=== PATIENT | male | born 1995 | race Caucasian/White ===

== ENCOUNTER 2017-02-15 17:36 | Emergency (ER) | payer BC ==
[~2017-02-15] VITALS: Ht 182.9 cm; Wt 61.0 kg
--- OUTSIDE RECORDS SUMMARY | 2017-02-15 17:45 | XMS REPORT | Continuity of Care Document ---
Author Author [facility] Address Unknown Phone Unavailable Allergies Active Description Code Type Severity Reaction Onset Reported/Identified Relationship to Patient Clinical Status Yes NKDA N/A N/A Medications Problems Procedures Results Encounters ACCT No. Visit Date/Time Discharge Status Pt. Type Provider Facility Loc./Unit Complaint [id number] 12/20/2016 09:48:00 12/20/2016 09:48:00 DIS Outpatient [id number] 12/20/2016 09:47:47 12/20/2016 09:47:47 DIS Outpatient [id number] 12/20/2016 09:38:59 12/20/2016 09:38:59 DIS Outpatient [id number] 10/06/2016 15:38:44 10/06/2016 15:38:44 DIS Outpatient [id number] 09/26/2016 09:06:42 09/26/2016 09:06:42 DIS Outpatient [id number] 09/26/2016 09:05:32 09/26/2016 09:05:32 DIS Outpatient [id number] 09/26/2016 07:56:02 09/26/2016 07:56:02 DIS Outpatient [id number] 09/26/2016 07:55:04 09/26/2016 07:55:04 DIS Outpatient [id number] 09/23/2016 14:53:58 09/23/2016 14:53:58 DIS Outpatient [id number] 09/23/2016 10:32:06 09/23/2016 10:32:08 DIS Outpatient [id number] 09/14/2016 09:51:28 09/14/2016 09:51:28 DIS Outpatient [id number] 09/13/2016 09:50:59 09/13/2016 09:50:59 DIS Outpatient [id number] 09/13/2016 08:34:23 09/13/2016 08:34:23 DIS Outpatient [id number] 09/13/2016 08:23:10 09/13/2016 08:23:10 DIS Outpatient [id number] 09/13/2016 08:22:56 09/13/2016 08:22:56 DIS Outpatient [id number] 09/13/2016 08:22:05 09/13/2016 08:22:05 DIS Outpatient [id number] 09/13/2016 08:21:51 09/13/2016 08:21:51 DIS Outpatient [id number] 09/12/2016 12:45:16 09/12/2016 12:45:16 DIS Outpatient [id number] 09/12/2016 12:42:30 09/12/2016 12:42:30 DIS Outpatient [id number] 09/12/2016 12:42:29 09/12/2016 12:42:29 DIS Outpatient [id number] 09/16/2016 15:01:08 DIS Outpatient [id number] 09/16/2016 12:46:51 DIS Outpatient [id number] 09/16/2016 12:46:49 DIS Outpatient [id number] 09/13/2016 10:52:48 DIS Outpatient [id number] 09/13/2016 10:36:49 DIS Outpatient [id number] 09/13/2016 10:36:42 DIS Outpatient [id number] 09/13/2016 10:35:09 DIS Outpatient [id number] 09/13/2016 10:35:05 DIS Outpatient [id number] 09/13/2016 10:20:06 DIS Outpatient [id number] 09/13/2016 09:53:09 DIS Outpatient [id number] 09/13/2016 08:35:00 Document Registration [id number] 09/13/2016 08:34:00 Document Registration [id number] 09/12/2016 12:48:13 DIS Outpatient [id number] 09/12/2016 12:47:42 DIS Outpatient [id number] 09/12/2016 12:43:04 DIS Outpatient [id number] 09/12/2016 12:43:03 DIS Outpatient
[2017-02-15] MEDS ORDERED: SODIUM CHLORIDE FLUSH 10 ML SYR IV PRN (18:05)
[2017-02-15 18:24] LABS: BASOPHILS % (AUTO) 0 % (0-2); EOSINOPHILS # (AUTO) 0.1 10^3uL; EOSINOPHILS % (AUTO) 1 % (0-4); LYMPHOCYTES # (AUTO) 1.5 X10^3; MEAN CORPUSCULAR HEMOGLOBIN 30.9 PG (26.0-34.0); MEAN CORPUSCULAR HGB CONC 33.7 g/dL (31.0-37.0); MEAN CORPUSCULAR VOLUME 92 FL (80-100); MONOCYTES # (AUTO) 1.1 X10^3; MONOCYTES % (AUTO) 12 % (3-11); NEUTROPHILS % (AUTO) 69 % (51-67); PLATELET COUNT 147 10^3uL (150-450); WHITE BLOOD COUNT 8.73 10^3uL (4.0-11.0)
[2017-02-15 18:25] LABS: BILIRUBIN,URINE Negative (Negative); CLARITY,URINE Clear; COLOR,URINE Yellow; GLUCOSE, URINE (UA) Negative (Negative); LEUKOCYTE ESTERASE ,URINE Negative (Negative)
[2017-02-15] MEDS ORDERED: DIVA500T7 PO (18:30)
[2017-02-15 18:34] LABS: ALBUMIN 4.7 g/dL (3.4-5.0); ANION GAP 15.2 MEQ/L (3-15)
--- NOTE | 2017-02-15 18:35 | NUR ---
DR RAMIREZ TALKS WITH DR SIERRA RE PT. CL
--- NOTE | 2017-02-15 18:44 | NUR ---
report given & care tsf to omar delcid. cl
--- NOTE | 2017-02-15 19:20 | Diagnostic Imaging Report ---
PROCEDURE: CT abdomen and pelvis without contrast. TECHNIQUE: Multiple contiguous axial images were obtained through the abdomen and pelvis without the use of intravenous contrast. INDICATION: Generalized abdominal pain. COMPARISON: None available. FINDINGS: The lung bases are clear. No pericardial or pleural effusion. Kidneys are symmetric in size. No renal or ureteral calculi. No obstructive uropathy on either side. The urinary bladder is distended without focal wall thickening and there are no intraluminal calculi. Prostate is normal in size. No free fluid or free intraperitoneal air. Evaluation of the abdominal viscera is mildly limited without IV contrast. Allowing for this, liver, spleen, pancreas, and adrenals are normal. The stomach is decompressed. No bowel obstruction. The gallbladder is normal. No pericolonic inflammatory changes. The appendix is normal. Normal-caliber abdominal aorta. No abdominal or pelvic lymphadenopathy. No concerning osseous lesions. IMPRESSION: No acute intra-abdominal process. Dictated by: Dictated on workstation # [id number]
[2017-02-15] MEDS ORDERED: KETOROLAC 30 MG/ML (TORADOL) 1 ML VIAL IV ONE (19:40)
[2017-02-15] MEDS ORDERED: ONDANSETRON 2 MG/ML (Z0FRAN) 2 ML VIAL IV ONE (19:40)
--- NOTE | 2017-02-15 19:44 | NUR ---
Administered Zofran 4 mg and Toradol 30 mg IV for discomfort in upper and lower abdomen rated 8/10. Pt resting on cart. Denies other needs. Will continue to monitor.
[2017-02-15] MEDS ORDERED: DICYCLOMINE 10 MG (BENTYL) CAP PO ONE (20:00)
--- NOTE | 2017-02-15 20:02 | NUR ---
Administered Bentyl 20 mg PO. Pt took without difficulty. Reports discomfort still present, rates 6-7/10. Has decreased some. No other needs at this time.
--- NOTE | 2017-02-15 20:28 | NUR ---
Pt resting on cart, texting on phone and watching tv. Reports nausea is gone but pain is still there. Rates pain at 6-05/29.
[2017-02-15] MEDS ORDERED: HYDROmorphone 1 MG/ML (DILAUDID) SYRINGE IV ONE (20:35)
[2017-02-15] MEDS ORDERED: ED- HYDROcodone/ACETAMINOPHEN 5MG/325MG (NORCO) 6 TABLETS/BTL PO ONE (20:35)
[2017-02-15] MEDS ORDERED: ED- ONDANSETRON ODT 4 MG (ZOFRAN) 4 TABLETS/BTL PO ONE (20:35)
[2017-02-15] MEDS ORDERED: ONDA4TAB8 PO (20:37)
--- NOTE | 2017-02-15 20:39 | NUR ---
Pt given Dilaudid 0.5 mg IV for discomfort rated 7/10.
--- NOTE | 2017-02-15 21:24 | NUR ---
Dismissal instructions given to patient. Pt stated his understanding. Will dismiss to home when his ride arrives. Pt getting dressed now. IV site discontinued.
[2017-02-15 21:26] VITALS: BP 99/62
--- NOTE | 2017-02-15 21:32 | NUR ---
Pt dismissed to home. Instructions already provided. Prepacks of Zofran and [place] 5 sent with patient, along with dosing instructions. Pt stated his understanding. Pt left ambulatory to POV, friend will be driving him home. No other needs or concerns presented.
== END 2017-02-15 21:31 | disposition home or self-care (01) ==
LOC: ED 17:41
DX: R10.32 Left lower quadrant pain (principal); R10.31 Right lower quadrant pain; A08.39 Other viral enteritis
CPT/HCPCS: 36415; 74176; 80053; 81003; 83690; 85025; 96374; 96375; 99284; J1170; J1885; J2405